=== PATIENT | female | born 1980 | race Caucasian/White ===

== ENCOUNTER 2018-02-08 00:59 | Emergency (ER) | payer MEDICAID, OTHER ==
[2018-02-08] MEDS: CYCLOBENZAPRINE 10 MG TAB PO (01:47)
[2018-02-08] MEDS: HYDROCODONE/APAP (5/325) TAB PO (01:48)
[2018-02-08] MEDS: IBUPROFEN 600 MG TAB PO (01:48)
== END 2018-02-08 02:25 | disposition home or self-care (01) ==
LOC: FTE 00:59
DX: S39.012A Strain of muscle, fascia and tendon of lower back, initial encounter (principal); T14.8XXA Other injury of unspecified body region, initial encounter; S16.1XXA Strain of muscle, fascia and tendon at neck level, initial encounter; F17.210 Nicotine dependence, cigarettes, uncomplicated; V49.40XA Driver injured in collision with unspecified motor vehicles in traffic accident, initial encounter
CPT/HCPCS: 99284; Z7502